=== PATIENT | male | born 1985 | race Caucasian/White ===

== ENCOUNTER → 2018-03-30 | Outpatient (CLI) | payer MEDICARE ==
[2015-06-02 21:51] VITALS: BP 144/80
[~2018-03-30] MED LIST: ACET325T9 PO; CARV6.25 PO; FURO-68 PO; LISI10TA2 PO; LOSA-73 PO; VENTOLIN HFA18 GM INH
--- NOTE | 2018-03-30 11:42 | KCIC ---
MRA Brain History: Headache associated with sexual activity, exertional headaches for the last 2 weeks Technique: 3-D [id number] MR angiography was performed of the brain. Comparison: None Findings: Determination of any degree of stenosis is based on NASCET criteria. There is some motion degradation. Both vertebral arteries constitute the basilar artery, dominant left vertebral artery. PICAs are not seen on either side. There is visualization bilateral AICAs and superior cerebellar arteries. No significant posterior communicating arteries are visualized, veins present. There is small patent anterior communicating artery. No significant intracranial stenosis or aneurysm is identified. There is ethmoid air cell mucosal thickening bilaterally, also likely mucous retention cysts of the bilateral maxillary sinuses and sphenoid sinus. Impression: 1. No significant intracranial stenosis or aneurysm is identified. 2. There is paranasal sinus mucosal thickening and mucous retention cysts. Electronically signed by: Flash Ravi MD (03/30/2018 11:38 AM) [facility]-KC[facility]
== END | disposition home or self-care (01) ==
LOC: KCIC MRI 08:27
PROVIDERS: ATTEND Family Medicine
DX: J34.89 Other specified disorders of nose and nasal sinuses (principal)
CPT/HCPCS: 70544

== ENCOUNTER 2020-03-01 22:35 | Emergency (ER) | payer MEDICARE ==
[~2020-03-01] VITALS: Ht 175.3 cm; Wt 222.3 kg
[2020-03-01] MEDS ORDERED: METH4TAB2 PO (23:21)
[2020-03-01] MEDS ORDERED: GUAI118L13 PO (23:21)
--- NOTE | 2020-03-01 23:22 | ED.ADGEN ---
Past Medical History Past Medical History: Hypertension Additional Past Medical Histor: morbid obesity, takes protien supplement Past Surgical History: No Surgical History Additional Past Surgical Histo: hernia repair Smoking Status: Never Smoker Alcohol Use: None Drug Use: None General Adult EDM: Chief Complaint: MULTIPLE COMPLAINTS HPI: HPI: Patient is a 34-year-old male who presents to the emergency room complaining of severe cough with some associated shortness of breath due to cough. He was diagnosed with coronavirus 19 earlier this week. He has been to using [id number]-jhw-[id number] remedies without any relief. He states he gets coughing fits and then has a hard time breathing. He typically recovers quickly. He has been having intermittent headaches and nausea. He denies any additional complaints. He has been taking Mucinex and Tessalon at home with minimal relief. Review of Systems: Review of Systems: Complete ROS is negative unless otherwise documented in HPI Allergies: Allergies: Allergies Coded Allergies Type Severity Reaction Last Updated Verified lisinopril Allergy Severe Anaphylaxis 03/01/14 Yes Physical Exam: PE: General: Awake, alert, NAD. Well Nourished, well hydrated. Cooperative. Morbid obesity HEENT: Atraumatic, EOMI, PERRL, airway patent, moist oral mucosa Neck: Supple, trachea midline Respiratory: Decreased breath sounds bilaterally, normal effort, no respiratory distress CV: RRR, no murmur, cap refill <2 GI: Soft, nondistended, nontender, no masses MSK: No obvious deformities Skin: Warm, dry, intact Neuro: A&O x3, speech NL, sensory and motor grossly intact, no focal deficits Psych: Normal affect, normal mood, not suicidal or homicidal Current Patient Data: Vital Signs: Vital Signs Date Time Temp Pulse Resp B/P (MAP) Pulse Ox O2 Delivery O2 Flow Rate FiO2 03/02/20 00:33 84 101/48 (65) 95 Room Air 03/01/20 23:18 100.0 22 100.0 EKG: EKG: [] Heart Score: Risk Factors: Risk Factors: DM, Current or recent (<one month) smoker, HTN, HLP, family history of CAD, obesity. Risk Scores: Score 0 - 3: 2.5% MACE over next 6 weeks - Discharge Home Score 4 - 6: 20.3% MACE over next 6 weeks - Admit for Clinical Observation Score 7 - 10: 72.7% MACE over next 6 weeks - Early Invasive Strategies Radiology/Procedures: Radiology/Procedures: [] Course & Med Decision Making: Course & Med Decision Making Pertinent Labs and Imaging studies reviewed. (See chart for details) Patient is 34-year-old male who presents to the emergency room with cough and associated shortness of breath when coughing. Patient is overall well- appearing. He has known coronavirus 19. Chest x-ray is normal. Vitals are normal. Patient is not in any respiratory distress. We will start him on symptomatic care and discussed when to return to the emergency room. Patient's test results and vitals while in the ED were fully reviewed and discussed with the patient. Patient is stable and at this time does not need admission to the hospital. We have discussed strict return precautions and the importance of following up with their Primary Care Physician. Patient stated understanding and was given an opportunity to ask any questions. Patient is in agreement with plan. Dragon Disclaimer: Dragon Disclaimer: This electronic medical record was generated, in whole or in part, using a voice recognition dictation system. Departure Departure Impression: Primary Impression: COVID-19 Additional Impression: Cough Disposition: 01 DC HOME SELF CARE/HOMELESS Condition: STABLE Referrals: MARIA ESTHER GOLDSTEIN MD (PCP) Patient Instructions: Cough, Adult, Shortness of Breath Additional Instructions: Thank you for visiting [facility]. We appreciate you trusting us with your care. If any additional problems come up please don't hesitate to r eturn to visit us. Follow up with your primary care provider so they can plan additional care if needed and know about the problem that you had today. If symptoms worsen come back to the Emergency Department. Any concerning symptoms that start such as chest pain, shortness of air, weakness or numbness on one side of the body, running high fevers or any other concerning symptoms return to the ER. You have a viral syndrome which may include symptoms like muscle aches, fevers, chills, runny nose, cough, sneezing, sore throat, nausea, vomiting, or diarrhea. One of the potential viruses that you may have is SARS-CoV-2, the virus that ca uses COVID-19, also known as the Coronavirus. You are just as likely to have a different viral infection such as the common cold, flu, etc. Most patients with the Coronavirus have mild symptoms and recover on their own. Resting, staying hydrated, and sleep based on known cases can be helpful. As of todays visit, you are well enough to go home and treat your symptoms with oral fluids and over the counter medications. Coronavirus testing is not performed on most people with mild symptoms who are being discharged from the emergency department. If Coronavirus testing was performed today the results will not be available for possibly up to 3-4 days. If your result is positive you will be contacted. Please follow the following precautions at home: 1. Stay home except to get medical care. 2. As advised by the CDC, we recommend that you stay in your home and minimize contact with other people. We do not want you to spread the infection. 3. Those who are older or have significant medical issues may have more severe symptoms from this infection. We recommend self-isolation FOR AT LEAST 7 DAYS after your 1st day of symptoms. AFTER you feel better please wait AT LEAST ANOTHER WEEK before returning to regular activities and being around other people. 4. IF you become sicker and have difficulty breathing, chest pain, are unable to eat/drink, severe vomiting, diarrhea, or weakness you may need to return to the Emergency Department. 5. You should restrict activities outside of your home, except for getting medical care. DO NOT go to work, school, or public areas. Avoid using public transportation, ride sharing, or taxis. 6. Separate yourself from other people in your home. You should use a separate bathroom if possible. 7. Avoid sharing personal household items such as dishes, cups, eating utensils, towels, etc. 8. Clean all high touch surfaces every day (door knobs, counter tops, etc). Use a household cleaning spray or wipe per label instructions. 9. Clean your hands often. Wash your hands with soap and water for at least 20 seconds. 10. Cover your mouth and nose when you cough or sneeze. 11. Throw used tissues in the trash and immediately wash your hands. For additional resources please visit the CDC website or the [facility] ([phone]), you may also call 211 for further information. Scripts Inhaler,Assist Device,Lg Mask (Procare Spacer with Adult Mask) 1 Each Spacer EACH , #1 Prov: DENNIS KHALIL MD 03/02/20 Methylprednisolone (MEDROL) 4 Mg Tab.ds.pk 1 PKG PO UD for inflammation, #1 PKG Prov: DENNIS KHALIL MD 03/01/20 Guaifenesin/Codeine Phosphate (GUAIFENESIN-CODEINE SYRUP) 118 Ml Liquid 5 ML PO Q6HRS PRN for COUGH, #120 ML Prov: DENNIS KHALIL MD 03/01/20 Problem Qualifiers DENNIS KHALIL MD Mar 01, 2020 23:22
--- NOTE | 2020-03-02 00:04 | RAD ---
Exam: Chest one view INDICATION: Shortness of breath TECHNIQUE: Frontal view of the chest Comparisons: None FINDINGS: The cardiomediastinal silhouette and pulmonary vessels are within normal limits. The lung and pleural spaces are clear. IMPRESSION: No acute cardiopulmonary process. Electronically signed by: Susan Boland MD (03/02/2020 12:01 AM) [facility]
[2020-03-02] MEDS ORDERED: [UNRECOGNIZED DRUG - CODE] MC (00:21)
[2020-03-02 00:33] VITALS: BP 101/48
== END 2020-03-02 00:43 | disposition home or self-care (01) ==
LOC: ER 22:35
DX: U07.1 COVID-19 (principal); R05 Cough; R06.02 Shortness of breath; R51.9 Headache, unspecified; R11.0 Nausea; I10 Essential (primary) hypertension; E66.01 Morbid (severe) obesity due to excess calories; Z68.45 Body mass index [BMI] 70 or greater, adult; Z98.890 Other specified postprocedural states; Z88.8 Allergy status to other drugs, medicaments and biological substances
CPT/HCPCS: 71045; 99283

== ENCOUNTER → 2020-04-14 | Outpatient (CLI) | payer MEDICARE ==
[~2020-04-14] MED LIST changes: +GUAI118L13 PO; +METH4TAB2 PO; +[UNRECOGNIZED DRUG - CODE] MC
--- NOTE | 2020-04-14 14:21 | KCIC ---
XR CHEST 2V History: Reason: Cough, hx. Covid 02/2020 / Spl. Instructions: / History: Comparison: March 01, 2020 Findings: Multifocal ill-defined opacities bilaterally. No pneumothorax. Normal heart size. No pleural effusion . Impression: 1. Multifocal ill-defined opacities bilaterally, may represent viral pneumonia given history. Electronically signed by: Keith Merino DO (04/14/2020 2:18 PM) [id number]
== END ==
LOC: KCIC 11:35
PROVIDERS: ATTEND Nurse Practitioner Gerontology
DX: R05 Cough (principal); Z86.16 Personal history of COVID-19
CPT/HCPCS: 71046

== ENCOUNTER 2021-03-14 15:45 | Emergency (ER) | payer MEDICARE ==
[~2021-03-14] VITALS: Ht 175.3 cm; Wt 212.2 kg
[~2021-03-14 15:45] MED LIST changes: +LISI10TA16 PO; -LISI10TA2 PO
[2021-03-14 16:02] VITALS: BP 168/77
--- NOTE | 2021-03-14 16:29 | PHYS DOC ---
Past Medical History Past Medical History: Hypertension Additional Past Medical Histor: morbid obesity, takes protien supplement, BORDERLINE DM Past Surgical History: No Surgical History Additional Past Surgical Histo: hernia repair Smoking Status: Never Smoker Alcohol Use: Rarely Drug Use: None General Adult EDM: Chief Complaint: COUGH HPI: HPI: Patient is a 35-year-old male who presents to the emergency department for a nonproductive cough and a sore throat that started yesterday. Patient had positive sick exposure at home. Patient denies fevers, nausea, vomiting, chest pain, abdominal pain, shortness of breath. Patient's vital signs are stable and he is in no acute distress. Review of Systems: Review of Systems: Constitutional: See HPI HENT: See HPI Respiratory: See HPI Cardiovascular: See HPI GI: See HPI Heart Score: C/O Chest Pain: No Risk Factors: Risk Factors: DM, Current or recent (<one month) smoker, HTN, HLP, family history of CAD, obesity. Risk Scores: Score 0 - 3: 2.5% MACE over next 6 weeks - Discharge Home Score 4 - 6: 20.3% MACE over next 6 weeks - Admit for Clinical Observation Score 7 - 10: 72.7% MACE over next 6 weeks - Early Invasive Strategies Allergies: Allergies: Allergies Coded Allergies Type Severity Reaction Last Updated Verified lisinopril Allergy Severe Anaphylaxis 03/14/21 Yes Physical Exam: PE: Constitutional: Well developed, well nourished, no acute distress, non-toxic appearance. [] HENT: Normocephalic, atraumatic, bilateral external ears normal, oropharynx moist, uvula midline, no tonsillar enlargement, no oropharyngeal erythema, postnasal drainage noted, no phonation changes, no trismus, no oral exudates, nose normal. [] Eyes: PERRL, EOMI, conjunctiva normal, no discharge. [] Neck: Normal range of motion, no tenderness, supple, no stridor. [] Cardiovascular:Heart rate tachycardia rhythm, no murmur [] Lungs & Thorax: Bilateral breath sounds clear to auscultation [] Abdomen: Bowel sounds normal, soft, no tenderness, obese, no masses, no pulsatile masses. [] Skin: Warm, dry, no erythema, no rash. [] Back: Normal range of motion Extremities: No tenderness, no cyanosis, no clubbing, ROM intact, no edema. [] Neurologic: Alert and oriented X 3, normal motor function, normal sensory function, no focal deficits noted. [] Psychologic: Affect normal, judgement normal, mood normal. [] Current Patient Data: Vital Signs: Vital Signs Date Time Temp Pulse Resp B/P (MAP) Pulse Ox O2 Delivery O2 Flow Rate FiO2 03/14/21 16:02 98.7 102 22 168/77 (107) 94 Room Air 98.7 EKG: EKG: [] Radiology/Procedures: Radiology/Procedures: Laboratory Tests Test 03/14/21 16:13 Influenza Type A Antigen Negative Influenza Type B Antigen Negative [] Course & Med Decision Making: Course & Med Decision Making Pertinent Labs and Imaging studies reviewed. (See chart for details) Patient presents to the emergency department for nonproductive cough and a sore throat. Patient had sick exposures at home. Patient's vital signs are stable and he is in no acute distress. Patient had no tonsillar enlargement or erythema. Patient be tested for influenza and COVID-19. Rapid influenza test was negative. Patient will be notified via telephone of his Covid results in ap proximately 2 days and they become available. He is advised to self isolate pending these results. He can perform warm salt water gargles, take Tylenol/ibuprofen for any pain or fevers and take Delsym [id number] for his cough. I discussed with patient all findings and diagnostic testing as well as the need to follow-up with PCP for further evaluation and treatment or retur n to the ER if any new or worsening symptoms. Strict return precautions were also discussed at length. Patient voiced understanding and agreement with the plan. Patient is hemodynamically stable at the time of disposition. Dragon Disclaimer: Dragon Disclaimer: This electronic medical record was generated, in whole or in part, using a voice recognition dictation system. Departure Departure Impression: Primary Impression: Person under investigation for COVID-19 Disposition: HOME / SELF CARE / HOMELESS Condition: GOOD Referrals: MARIA ESTHER GOLDSTEIN MD (PCP) Patient Instructions: Cough, Adult Additional Instructions: You are seen in the emergency department for a cough and a sore throat. Your rapid influenza test was negative. We tested you for COVID-19 you will be notified of those results negative available in approximately 2 days. Please self isolate until you receive these results. For any pain or fevers you can ta ke Tylenol and/or ibuprofen. Warm salt water gargles may help with your sore throat. For your cough you can take Delsym [id number]. Increase your fluids and rest. Please follow-up with your primary care provider on Tuesday regarding your ER visit. Please return to the emergency department if you develop shortness of breath, chest pain, intractable nausea or vomiting, high fevers refractory to treatment, weakness or any new or worsening concerns. DOMI VANEGAS HYDROMETER TESTER Mar 14, 2021 16:29
[2021-03-14 16:42] LABS: INFLUENZA A PATIENT NEGATIVE (NEGATIVE); INFLUENZA B PATIENT NEGATIVE (NEGATIVE)
--- NOTE | 2021-03-16 17:01 | NUR ---
IP: Attempted to contact pt concerning covid results. No answer, no voicemail box.
--- NOTE | 2021-03-17 14:04 | NUR ---
IP: Pt called to get results. Informed him of negative covid test. pt verbalized understanding.
== END 2021-03-14 16:53 | disposition home or self-care (01) ==
LOC: ER 15:45
DX: R05.9 Cough, unspecified (principal); J02.9 Acute pharyngitis, unspecified; Z20.822 Contact with and (suspected) exposure to COVID-19; I10 Essential (primary) hypertension; Z88.6 Allergy status to analgesic agent
CPT/HCPCS: 87804; 99283; U0003; U0005